=== PATIENT | female | born 1960 | race African-American/Black ===

== ENCOUNTER 2018-06-16 20:50 | Observation (INO) | payer SELFPAY ==
[~2018-06-16] VITALS: Ht 167.6 cm; Wt 90.7 kg
[2018-06-16] MEDS ORDERED: LEVOXYL75 MCG PO (21:06)
[2018-06-16] MEDS ORDERED: PRINIVIL10 MG PO (21:06)
[2018-06-16 22:52] LABS: BASOPHILS 0.3 % (0-2); EOSINOPHILS 0.7 % (0-7); HEMATOCRIT 36.2 % (36.0-48.0); HEMOGLOBIN 12.2 g/dL (12-16); IMMATURE GRANULOCYTES 0.3 % (0-5); LYMPHOCYTES 14.9 % (15-50); MCH 27.5 pg (26.0-34.0); MCHC 33.7 g/dL (31.0-37.0); MCV 81.5 fL (80.0-100.0); MEAN PLATELET VOLUME 9.6 fL (7.4-10.4); MONOCYTES 5.5 % (2-11); NEUTROPHILS 78.3 % (40-80); PLATELET COUNT 306 10x3/uL (130-400); RBC 4.44 10x6/uL (4.00-5.40); RDW 14.1 % (11.5-14.5); WBC 11.1 10x3/uL (4.8-10.8)
[2018-06-16 23:10] LABS: BILIRUBIN - TOTAL 0.23 mg/dL (0.2-1.3); CALCIUM 8.9 mg/dL (8.5-10.1); CARBON DIOXIDE 26.5 mmol/L (21.0-32.0); POTASSIUM - SERUM 3.5 mmol/L (3.5-5.1); PROTEIN - SERUM 8.6 g/dL (6.4-8.2)
[2018-06-16 23:37] LABS: APPEARANCE HAZY (CLEAR); BILIRUBIN NEGATIVE (NEGATIVE); COLOR YELLOW (YELLOW); GLUCOSE NEGATIVE (NEGATIVE); KETONE NEGATIVE (NEGATIVE); NITRITE POSITIVE (NEGATIVE); PROTEIN NEGATIVE (NEGATIVE); RED CELLS - URINE NONE SEEN /hpf (0-5); SPECIFIC GRAVITY 1.015 (1.005-1.020); UROBILINOGEN NORMAL (NORMAL); WHITE CELLS - URINE 0-5 /hpf (0-5)
[2018-06-16 23:38] LABS: BACTERIA MANY /hpf (NONE SEEN); EPITHELIAL CELLS NSEEN /hpf (0-5)
--- NOTE | 2018-06-16 23:50 | NUR ---
ANKLE STABILZED WITH ORTHOGLASS SPLINT AND EMRE WRAP. PT TOLERATED FAIR, SPOUSE AT BEDSIDE
[2018-06-17] VITALS (7 sets, daily range): BP systolic 134–206; BP diastolic 70–109; BMI 32.3
--- NOTE | 2018-06-17 00:01 | NUR ---
REPORT RECEIVED ON PT...AWAITING HER ARRIVAL ONTO FLOOR.
--- NOTE | 2018-06-17 00:32 | NUR ---
PT ARRIVED ON UNIT VIA STRETCHER ESCORTED BY ER STAFF AND SPOUSE. TRANSFERRED TO BED USING X4 PEOPLE. ELEVATED RIGHT FOOT ON PILLOW. IV IN RIGHT AC PATENT WITH NS INFUSING TO GRAVITY WITH APPROX 100 ML LEFT IN 1000 ML BAG. CHANGED PT INTO YELLOW GOWN AND ASSISTED WITH BEDPAN TO VOID. GRIPPER SOCK PLACED ON LEFT FOOT. YELLOW STAR ON DOOR AND BED ALARM IN USE. SPOUSE IS AT BEDSIDE.
--- NOTE | 2018-06-17 00:45 | NUR ---
CALLED ER PHYSICIAN TO REQUEST PRN HTN MEDICATION ADMISSION BP IS 206/109. RECEIVED ORDER FOR HYDRALAZINE 10 MG Q4HR PRN SBP >170, AND DBP >105. CALLED DRILL SETUP OPERATOR TO OVERRIDE.
--- NOTE | 2018-06-17 01:18 | NUR ---
ADMISSION ASSESSMENT AND HISTORY COMPLETE.
[2018-06-17] MEDS ORDERED: IRON (01:19)
--- NOTE | 2018-06-17 02:17 | NUR ---
PT TURNED ONTO RIGHT SIDE PROPPED WITH X2 WARM BLANKETS FOR C/O BACK PAIN. ICE PACK PLACED ON RIGHT ANKLE FOR PAIN AND SWELLING.
--- NOTE | 2018-06-17 08:44 | NUR ---
PT RESTING IN BED. CO OF PAIN. NPO. SX PLANNED FOR TODAY. NO S/S OF ACUTE DISTRESS. CL IN PLACE.
--- NOTE | 2018-06-17 09:02 | NUR ---
AAOX4. ASSISTED PT ON BEDPAN WITH HRIS SPECIALIST. CO OF PAIN. MORPHINE GIVEN PER MD ORDER. NPO. CONSENTS SIGNED. NO S/S OF ACUTE DISTRES.. CL IN PLACE. AT BEDSIDE.
--- NOTE | 2018-06-17 11:10 | NUR ---
SPOKE WITH DR RASMUSSEN ABOUT PT CO OF "SEVERE PAIN TO R ANKLE". NEW ORDER FOR MORPHINE 4 MG Q2PRN. NO S/S OF ACUTE DISTRESS. CL IN PLACE.
--- NOTE | 2018-06-17 11:53 | MORECARE ---
CASE MANAGEMENT DISCHARGE SUMMARY PATIENT: JAMIR CAI UNIT: [id number] ADM DATE: 06/16/18 AGE: 57 : 62 SEX: F ROOM/BED: D.2212 AUTHOR: ROBINSON AGUILERA PHYSICIAN: REFERRING PHYSICIAN: LORENA HARDING DO DATE OF SERVICE: 06/17/18 Discharge Plan Patient Name: JAMIR CAI [facility] [facility] 1960 Planned Disposition: Home Anticipated Discharge Date: Discharge Date: Expected LOS: Initial Reviewer: [email or web address] Initial Review Date: 06/17/2018 Generated: 06/17/18 12:53 pm Comments DCP- Discharge Planning Updated by [email or web address]: Kassidy Coronel on 06/17/18 10:[address] SPOKE WITH PATIENT AND SPOUSE ABOUT DC DME AFTER SURGERY. THEY ARE FROM [place] AND ARE HERE [facility] WITH A LARGE GROUP FROM THEIR [place]ISM. THEY DO NOT HAVE INSURANCE & I EXPLAINED TO THEM THAT SHE WILL NEED CRUTCHES OR WALKER WHEN SHE IS DISCHARGED. I GAVE THEM INFORMATION ABOUT [facility] , [facility], [facility], [facility]. THEY ARE WORKING ON GETTING DME. CM TO ASSIST WITH DC PLANNING NEEDED Patient Name: JAMIR CAI Page [phone] at 1153 All edits/amendments must be made on the electronic document DICTATION DATE: 06/17/18 1153 TUG BOAT ENGINEER: BRUNILDA 06/17/18 1153 RPT#: [id number] DC DATE: STATUS: ADM IN [facility] [address] [place] [address] END OF REPORT
--- NOTE | 2018-06-17 12:43 | MORECARE ---
CASE MANAGEMENT DISCHARGE SUMMARY PATIENT: JAMIR CAI UNIT: [id number] ADM DATE: 06/16/18 AGE: 57 : 62 SEX: F ROOM/BED: D.2212 AUTHOR: ROBINSON AGUILERA PHYSICIAN: REFERRING PHYSICIAN: LORENA HARDING DO DATE OF SERVICE: 06/17/18 Discharge Plan Patient Name: JAMIR CAI [facility] [facility] 1960 Planned Disposition: Home Anticipated Discharge Date: Discharge Date: Expected LOS: Initial Reviewer: [email or web address] Initial Review Date: 06/17/2018 Generated: 06/17/18 1:43 pm Comments DCP- Discharge Planning Updated by [email or web address]: Kassidy Homer on 06/17/18 10:[address] SPOKE WITH PATIENT AND SPOUSE ABOUT DC DME AFTER SURGERY. THEY ARE FROM [place] AND ARE HERE [facility] WITH A LARGE GROUP FROM THEIR [place]ENRIISM. THEY DO NOT HAVE INSURANCE & I EXPLAINED TO THEM THAT SHE WILL NEED CRUTCHES OR WALKER WHEN SHE IS DISCHARGED. I GAVE THEM INFORMATION ABOUT [facility] , [facility], [facility], [facility]. THEY ARE WORKING ON GETTING DME. CM TO ASSIST WITH DC PLANNING NEEDED Last DP export: 06/17/18 10:53 am Patient Name: JAMIR CAI Page [phone] at 1243 All edits/amendments must be made on the electronic document DICTATION DATE: 06/17/18 1243 AUTOMATION TESTER: DM 06/17/18 1243 RPT#: [id number] DC DATE: STATUS: ADM IN [facility] [address] [place] [address] END OF REPORT
--- NOTE | 2018-06-17 18:39 | NUR ---
PT IN OR FOR SURGERY.
--- NOTE | 2018-06-17 20:00 | NUR ---
ARRIVED ON FLOOR VIA BED FROM OUTPT. RIGHT LEG ELEVATED ON PILLOWS. ICE TO EXTREMITY. INITITATED ON CONTINUOUS VITALS. IN ROOM. REPORTS NO PAIN AT THIS TIME. NO NEEDS VOICED AT THIS TIME.
[2018-06-18 04:00] VITALS: BP 150/88
--- NOTE | 2018-06-18 08:15 | NUR ---
PT RESTING IN BED. CO OF "FEELING COMING BACK AND PAIN." NO S/S OF ACUTE DISTRESS. AT BEDSIDE. CL IN PLACE.
[2018-06-18 09:28] VITALS: Ht 167.6 cm; Wt 90.7 kg
[2018-06-18] MEDS ORDERED: DILAUDID4 MG PO (09:53)
[2018-06-18] MEDS ORDERED: ASPIRIN81 MG PO (09:53)
[2018-06-18] MEDS ORDERED: VISTARIL50 MG PO (09:53)
[2018-06-18] MEDS ORDERED: KEFLEX500 MG PO (09:54)
[2018-06-18 10:59] VITALS: BP 166/93
--- NOTE | 2018-06-18 13:02 | MORECARE ---
CASE MANAGEMENT DISCHARGE SUMMARY PATIENT: JAMIR CAI UNIT: [id number] ADM DATE: 06/16/18 AGE: 57 : 62 SEX: F ROOM/BED: D.2212 AUTHOR: ROBINSON AGUILERA PHYSICIAN: REFERRING PHYSICIAN: LORENA HARDING DO DATE OF SERVICE: 06/18/18 Discharge Plan Patient Name: JAMIR CAI [facility] [facility] 1960 Planned Disposition: Home Anticipated Discharge Date: Discharge Date: Expected LOS: Initial Reviewer: [email or web address] Initial Review Date: 06/17/2018 Generated: 06/18/18 2:02 pm Comments DCP- Discharge Planning Updated by [email or web address]: Francine Pinto on 06/18/18 12:[address] LATE ENTRY 0935 REVIEWED CASE MANGER'S NOTE. SPOKE WITH PRIMARY NURSE. THE PATIENT AND FAMILY HAVE NOT PROCURED CRUTCHES TC TO [facility] REGARDING COST OF CRUTCHES SPOKE W/ SURYA. COST IS $55.00 TC TO [facility] [address] AND [facility]. COST IS 49.99. PROVIDED INFORMATION TO THE PATIENT. WILL FOLLOW UP. ADVISED THE PRIMARY NURSE. DCP- Discharge Planning Updated by [email or web address]: Kassidy Homer on 06/17/18 10:[address] SPOKE WITH PATIENT AND SPOUSE ABOUT DC DME AFTER SURGERY. THEY ARE FROM [place] AND ARE HERE [facility] WITH A LARGE GROUP FROM THEIR SPIRITISM. THEY DO NOT HAVE INSURANCE & I EXPLAINED TO THEM THAT SHE WILL NEED CRUTCHES OR WALKER WHEN SHE IS DISCHARGED. I GAVE THEM INFORMATION ABOUT [facility] , [facility], [facility], [facility]. THEY ARE WORKING ON GETTING DME. CM TO ASSIST WITH DC PLANNING NEEDED Last DP export: 06/17/18 11:43 am Patient Name: JAMIR CAI Page [phone] at 1302 All edits/amendments must be made on the electronic document DICTATION DATE: 06/18/18 1302 ENVIRONMENTAL FIELD PROFESSIONAL: BRUNILDA 06/18/18 1302 RPT#: [id number] DC DATE: STATUS: ADM IN [facility] [address] [facility] [address] END OF REPORT
--- NOTE | 2018-06-18 15:22 | NUR ---
DC INSTRUCTIONS AND EDUCATION DONE WITH AND PT. CALLED [facility] AND SPOKE WITH JINNY ABOUT NEEDING SCRIPTS FILLED AND HAVING DIFFICULTY FILLING THEM AT LOCAL PHARMS. JINNY STATED, "WE WILL NOT TURN THEM DOWN, TELL THEM TO COME ON." DC IV WITH TIP IN TACT. TOOK PT DOWN VIA WC. GAVE PT X2 PILLOWS TO PROP UP LEG FOR LONG TRIP HOME. NO S/S OF ACUTE DISTRESS. CARRIED ALL BELONGINGS DOWN.
--- NOTE | 2018-06-18 16:39 | MORECARE ---
CASE MANAGEMENT DISCHARGE SUMMARY PATIENT: JAMIR CAI UNIT: [id number] ADM DATE: 06/16/18 AGE: 57 : 62 SEX: F ROOM/BED: D.2212 AUTHOR: ROBINSON AGUILERA PHYSICIAN: REFERRING PHYSICIAN: LORENA HARDING DO DATE OF SERVICE: 06/18/18 Discharge Plan Patient Name: JAMIR CAI [facility]:[place] : 1960 Planned Disposition: Home Anticipated Discharge Date: 06/18/18 Discharge Date: 06/18/2018 Expected LOS: 2 Initial Reviewer: [email or web address] Initial Review Date: 06/17/2018 Generated: 06/18/18 5:39 pm Comments DCP- Discharge Planning Updated by [email or web address]: Francine Pinto on 06/18/18 12:[address] LATE ENTRY 0935 REVIEWED CASE MANGER'S NOTE. SPOKE WITH PRIMARY NURSE. THE PATIENT AND FAMILY HAVE NOT PROCURED CRUTCHES TC TO [facility] REGARDING COST OF CRUTCHES SPOKE W/ SURYA. COST IS $55.00 TC TO [facility] [address] AND [facility]. COST IS 49.99. PROVIDED INFORMATION TO THE PATIENT. WILL FOLLOW UP. ADVISED THE PRIMARY NURSE. DCP- Discharge Planning Updated by [id number]: Kassidy Coronel on 06/17/18 10:[address] SPOKE WITH PATIENT AND SPOUSE ABOUT DC DME AFTER SURGERY. THEY ARE FROM [place] AND ARE HERE [facility] [place] WITH A LARGE GROUP FROM THEIR TENRIISM. THEY DO NOT HAVE INSURANCE & I EXPLAINED TO THEM THAT SHE WILL NEED CRUTCHES OR WALKER WHEN SHE IS DISCHARGED. I GAVE THEM INFORMATION ABOUT [facility] , [facility], [facility], [facility]. THEY ARE WORKING ON GETTING DME. CM TO ASSIST WITH DC PLANNING NEEDED Last DP export: 06/18/18 12:02 pm Patient Name: JAMIR CAI Page [phone] at 0935 All edits/amendments must be made on the electronic document DICTATION DATE: 06/18/18 1633 IRON SETTER: BRUNILDA 06/18/18 1639 RPT#: [id number] DC DATE:06/18/18 STATUS: DIS IN [facility] [address] [place] [address] END OF REPORT
--- NOTE | 2018-06-18 16:49 | MORECARE ---
CASE MANAGEMENT DISCHARGE SUMMARY PATIENT: JAMIR CAI UNIT: [id number] ADM DATE: 06/16/18 AGE: 57 : 62 SEX: F ROOM/BED: D.2212 AUTHOR: ROBINSON AGUILERA PHYSICIAN: REFERRING PHYSICIAN: LORENA HARDING DO DATE OF SERVICE: 06/18/18 Discharge Plan Patient Name: JAMIR CAI Facility: [facility]:[place] : 1960 Planned Disposition: Home Anticipated Discharge Date: 06/18/18 Discharge Date: 06/18/2018 Expected LOS: 2 Initial Reviewer: [email or web address] Initial Review Date: 06/17/2018 Generated: 06/18/18 5:49 pm Comments DCP- Discharge Planning Updated by [email or web address]: Francine Pinto on 06/18/18 3:[address] LATE ENTRY 1330 CM CALLED MED DATA FOR THE PATIENT SHE HAD SOME FINANCIAL QUESTIONS. THE FAMILY STATES THEY WILL BE DRIVING BACK TO [place] TODAY. THEY WILL OBTAIN CRUTCHES AT HOME. DENIED ANY OTHER NEEDS. DCP- Discharge Planning Updated by [email or web address]: Francine Pinto on 06/18/18 12:[address] LATE ENTRY 0935 REVIEWED CASE MANGER'S NOTE. SPOKE WITH PRIMARY NURSE. THE PATIENT AND FAMILY HAVE NOT PROCURED CRUTCHES TC TO [facility] REGARDING COST OF CRUTCHES SPOKE W/ SURYA. COST IS $55.00 TC TO [facility] [address] AND [facility]. COST IS 49.99. PROVIDED INFORMATION TO THE PATIENT. WILL FOLLOW UP. ADVISED THE PRIMARY NURSE. DCP- Discharge Planning Updated by [email or web address]: Kassidy Homer on 06/17/18 10:[address] SPOKE WITH PATIENT AND SPOUSE ABOUT DC DME AFTER SURGERY. THEY ARE FROM [place] AND ARE HERE [facility] [place] WITH A LARGE GROUP FROM THEIR [employer]ISM. THEY DO NOT HAVE INSURANCE & I EXPLAINED TO THEM THAT SHE WILL NEED CRUTCHES OR WALKER WHEN SHE IS DISCHARGED. I GAVE THEM INFORMATION ABOUT [facility] , [facility], [facility], [facility]. THEY ARE WORKING ON GETTING DME. CM TO ASSIST WITH DC PLANNING NEEDED Last DP export: 06/18/18 3:39 pm Patient Name: JAMIR CAI Page [id number] at 1649 All edits/amendments must be made on the electronic document DICTATION DATE: 06/18/181647 SENIOR PENSIONS ADMINISTRATOR: BRUNILDA 06/18/181647 RPT#: [id number] DC DATE:06/18/18 STATUS: DIS IN [facility] [address] [place] [address] END OF REPORT
--- NOTE | 2018-06-18 18:26 | OP ---
PATIENT NAME: JAMIR CAI MEDICAL RECORD: [id number] :[birth year] LOCATION:D.MS Small2212 ADMISSION DATE:06/16/18 SURGEON: LORENA HARDING DO DATE OF OPERATION: 06/17/2018 PROCEDURE PERFORMED: Right ankle open reduction internal fixation bimalleolar. PREOPERATIVE DIAGNOSIS: Right closed displaced bimalleolar fracture of the right ankle. POSTOPERATIVE DIAGNOSIS: Right closed displaced bimalleolar fracture of the right ankle. INDICATIONS: Ms. Cai is a 57-year-old female who is here in [place] on a couples weekend with her , staying in a hotel who slipped on some ice last evening and twisted her ankle and came to the ER and saw that it was broken. She was admitted overnight for pain control and put on the schedule for today for surgery. I informed her she could be splinted and taken back home and had somebody back in the city where she is from fix it, but she elected to have it done here today. She is aware of the risks and benefits including infection, bleeding, damage to the superficial peroneal nerve and other nerves, need for further surgery, fracture, and blood clots and even . She was aware of those and signed the consent. SURGEON: Lorena Harding DO DESCRIPTION OF THE PROCEDURE: The patient received 2 grams Ancef preoperatively. She was given a block by anesthesia in the preoperative area, taken to the operative suite, laid in supine position, given general anesthetic. The right lower extremity was prepped and draped in sterile fashion with a tourniquet above the knee under the drapes. Once this was preped and draped, timeout was performed, everyone was agreeance to correct side, site, patient, and the procedure. The right lower extremity was then exsanguinated with an Esmarch and the tourniquet was inflated to 350 mmHg, it was up for 80 minutes throughout the procedure. Once the timeout was performed and the tourniquet was inflated, the incision began over the lateral lower leg over the fibula. Careful dissection was made down to the fibula itself and it was a very comminuted fracture from the end of the distal fibula. A lag screw was first placed and then a long 8-hole plate Arthrex locking plate was placed on the site. First secured with K wires and then the distal locking screws were put in place and then 3 more cortical screws were put in the shaft proximally and then another one mid shaft bridging the larger comminution in the fibula. Then, attention was then drawn to the medial side. A curvilinear incision was made over the medial malleolus at the medial joint line, a reduction was made and 2 K-wires were put in the medial malleolus confirming good position on AP and lateral and 2 cannulated screws partially threaded were put through them after having the drill punch in the first cortex. These were both in length 44. Attention was then drawn back to the lateral side for a TightRopes due to the high fibula fracture fractures to the increased probability of having syndesmotic injuries with 2 TightRopes were put in first more distal and then more proximal. K-wire was put through and in an anterior angled fashion to get through the tibia and then the drill was brought in and the TightRope was put through and cinched down and the same was done at the more proximal location. They were not cinched down completely until a large clamp was put over the plate and on the medial malleolus and squeezed down with the foot dorsiflexed and then OPERATIVE REPORT [id number] JAMIR CAI the TightRope were cinched down. Once this was seen to be in good position, the clamp was removed and so was the TightRopes. Sutures were cut and the x-rays taken in AP and mortise. The fracture was in good position and the ankle did not sublux laterally and there was no medial gapping of the medial joint space, lateral was done as well, was placed in good position, some comminution of the fibula, but this was left that way due to the difficulty of getting the smaller pieces reduced. Then, the combination was bridged with the plate. The sites were then thoroughly irrigated. The skin was closed with 2-0 Vicryl in an inverted interrupted fashion. ZipLine placed on the skin. Adaptic was then placed on that, 4 x 4s and ABD placed on the heel and then cast padding was used to wrap the foot all the way up to the knee and a 4 x 30 splint was placed posteriorly on the lower leg and secured in place with two 6-inch Albert wraps and the foot was held in dorsiflexion at the ankle while the splint dried, the patient was then awakened and taken to recovery in stable condition. The tourniquet was let down after all fixation was in and was up for 80 minutes. Blood loss approximately 100 mL. COMPLICATIONS: None. TRANSINT:[id number] Voice Confirmation ID: [id number] DOCUMENT ID: [id number] LORENA HARDING DO at 1826 CC: [id number] DICTATION DATE: 06/17/181932 BILINGUAL TRAINER: 06/18/18 0012 DIS IN 06/18/18 [facility] [address] [place] [address]
--- NOTE | 2018-06-20 14:57 | MORECARE ---
CASE MANAGEMENT DISCHARGE SUMMARY PATIENT: JAMIR CAI UNIT: [id number] ADM DATE: 06/16/18 AGE: 57 : 62 SEX: F ROOM/BED: D.2212 AUTHOR: ROBINSON AGUILERA PHYSICIAN: REFERRING PHYSICIAN: LORENA HARDING DO DATE OF SERVICE: 06/20/18 Discharge Plan Patient Name: JAMIR CAI Facility: [facility]:[place] : 1960 Planned Disposition: Home Anticipated Discharge Date: 06/18/18 Discharge Date: 06/18/2018 Expected LOS: 2 Initial Reviewer: [id number] Initial Review Date: 06/17/2018 Generated: 06/20/18 3:57 pm Comments DCP- Discharge Planning Updated by [email or web address]: Francine Pinto on 06/18/18 2:[address] LATE ENTRY 1330 CM CALLED MED DATA FOR THE PATIENT SHE HAD SOME FINANCIAL QUESTIONS. THE FAMILY STATES THEY WILL BE DRIVING BACK TO [place] TODAY. THEY WILL OBTAIN CRUTCHES AT HOME. DENIED ANY OTHER NEEDS. DCP- Discharge Planning Updated by [email or web address]: Francine Pinto on 06/18/18 11:[address] LATE ENTRY 0935 REVIEWED CASE MANGER'S NOTE. SPOKE WITH PRIMARY NURSE. THE PATIENT AND FAMILY HAVE NOT PROCURED CRUTCHES TC TO [facility] REGARDING COST OF CRUTCHES SPOKE W/ SURYA. COST IS $55.00 TC TO [facility] [address] AND [facility]. COST IS 49.99. PROVIDED INFORMATION TO THE PATIENT. WILL FOLLOW UP. ADVISED THE PRIMARY NURSE. DCP- Discharge Planning Updated by [email or web address]: Kassidy Homer on 06/17/18 9:[address] SPOKE WITH PATIENT AND SPOUSE ABOUT DC DME AFTER SURGERY. THEY ARE FROM [place] AND ARE HERE [facility] [place] WITH A LARGE GROUP FROM THEIR [place]IAN[place]. THEY DO NOT HAVE INSURANCE & I EXPLAINED TO THEM THAT SHE WILL NEED CRUTCHES OR WALKER WHEN SHE IS DISCHARGED. I GAVE THEM INFORMATION ABOUT [facility] , [facility], [facility], [facility]. THEY ARE WORKING ON GETTING DME. CM TO ASSIST WITH DC PLANNING NEEDED Last DP export: 06/18/18 2:49 pm Patient Name: JAMIR CAI Page [phone] at 1457 All edits/amendments must be made on the electronic document DICTATION DATE: 06/20/181456 DOG BEAUTICIAN: BRUNILDA 06/20/181456 RPT#: [id number] DC DATE:06/18/18 STATUS: DIS IN [facility] [address] [place] [address] END OF REPORT
== END 2018-06-18 15:28 | disposition home or self-care (01) ==
LOC: D.ER 20:50 → D.MS 23:10 → OBSVTIME 23:10 → D.MS 23:10
PROVIDERS: Family Medicine; ADMIT Orthopaedic Surgery; ATTEND Orthopaedic Surgery
DX: S82.841A Displaced bimalleolar fracture of right lower leg, initial encounter for closed fracture (principal); X58.XXXA Exposure to other specified factors, initial encounter; I10 Essential (primary) hypertension; E03.9 Hypothyroidism, unspecified